=== PATIENT | male | born 1990 | race Hispanic/Latino ===

== ENCOUNTER 2021-04-15 21:58 | Emergency (ER) | payer SELFPAY ==
[~2021-04-15] VITALS: Ht 170.2 cm; Wt 68.0 kg
[2021-04-16 00:24] LABS: BASOPHILS % 0.4 % (0.0-1.0); EOSINOPHILS # (AUTO) 0.2 (0.0-0.4); HEMATOCRIT 43.5 % (38.2-49.6); HEMOGLOBIN 14.4 g/dL (14.0-18.0); LYMPHOCYTES # (AUTO) 2.5 (1.0-3.2); LYMPHOCYTES % 32.1 % (18.0-39.1); MEAN CORPUSCULAR HEMOGLOBIN 30.3 pg (28-32); MEAN CORPUSCULAR HGB CONC 33.1 g/dL (31-35); MEAN CORPUSCULAR VOLUME 91.4 fL (81-99); MONOCYTES # (AUTO) 0.8 (0.2-0.8); MONOCYTES % 9.8 % (4.4-11.3); NEUTROPHILS # (AUTO) 4.4 (2.1-6.9); NEUTROPHILS % 55.3 % (38.7-80.0); PLATELET COUNT 385 x10e3/uL (140-360); RED BLOOD COUNT 4.76 x10e6/uL (4.3-5.7)
== END 2021-04-16 02:18 | disposition home or self-care (01) ==
LOC: ER 23:02
DX: K92.1 Melena (principal); F90.9 Attention-deficit hyperactivity disorder, unspecified type; R10.33 Periumbilical pain; W26.0XXD Contact with knife, subsequent encounter
CPT/HCPCS: 36415; 85025; 99283

== ENCOUNTER 2023-04-08 00:02 | Emergency (ER) | payer SELFPAY ==
[~2023-04-08] VITALS: Ht 170.2 cm; Wt 68.0 kg
[~2023-04-08 00:02] MED LIST: IBUPROFEN600 MG PO
[2023-04-08 00:10] VITALS: O2SAT 100
== END 2023-04-08 00:25 | disposition home or self-care (01) ==
LOC: ER 00:07
DX: G25.9 Extrapyramidal and movement disorder, unspecified (principal); F16.188 Hallucinogen abuse with other hallucinogen-induced disorder; F90.9 Attention-deficit hyperactivity disorder, unspecified type
CPT/HCPCS: 99282